=== PATIENT | female | born 1965 | race Two or more races ===

== ENCOUNTER 2016-10-25 21:07 | Emergency (ER) | payer MEDICAID, OTHER ==
[~2016-10-25] VITALS: Ht 157.5 cm; Wt 128.4 kg
[2016-10-26 01:30] VITALS: BP 108/55
== END 2016-10-26 02:16 | disposition left against medical advice (07) ==
LOC: ER 21:11
DX: R73.9 Hyperglycemia, unspecified (principal); Z53.21 Procedure and treatment not carried out due to patient leaving prior to being seen by health care provider
CPT/HCPCS: 82962

== ENCOUNTER 2017-10-04 15:57 | Emergency (ER) | payer MEDICAID ==
[~2017-10-04] VITALS: Ht 157.5 cm; Wt 121.6 kg
[2017-10-04 19:29] VITALS: BP 121/77
== END 2017-10-04 19:38 | disposition home or self-care (01) ==
LOC: ER 16:05
DX: S00.93XA Contusion of unspecified part of head, initial encounter (principal); E11.9 Type 2 diabetes mellitus without complications; I10 Essential (primary) hypertension; Z98.51 Tubal ligation status; X58.XXXA Exposure to other specified factors, initial encounter; Y93.89 Activity, other specified; Y92.89 Other specified places as the place of occurrence of the external cause; Y99.8 Other external cause status
CPT/HCPCS: 70450

== ENCOUNTER 2020-09-30 18:10 | Inpatient (IN) | payer MEDICAID ==
[~2020-09-30] VITALS: Ht 157.5 cm; Wt 118.0 kg
[2020-09-30] MEDS ORDERED: methylPREDNISolone SOD SUCC 125 MG/2 ML VL IV ONE (18:30)
[2020-09-30] MEDS ORDERED: DOCUSATE SOD 100 MG CAP PO PRN (23:30)
[2020-09-30] MEDS ORDERED: NITROGLYCERIN 0.4 MG SL TAB SL PRN (23:30)
[2020-09-30] MEDS ORDERED: HYDROcodone-ACET 5/325MG TAB PO PRN (23:30)
[2020-09-30] MEDS ORDERED: ONDANSETRON HCL 4 MG/2 ML VIAL IV PRN (23:30)
[2020-09-30] MEDS ORDERED: DEXTROSE (50%) 50ML SYRG IV PRN (23:30)
[2020-09-30] MEDS ORDERED: ACETAMINOPHEN 325 MG TAB PO PRN (23:30)
[2020-09-30] MEDS ORDERED: MORPHINE SULF INJ 2 MG/ML SYRINGE 1ML IV PRN (23:30)
[2020-09-30 23:34] LABS: Basophils # (auto) 0 10 ^3/uL (0-0.2); Basophils % (auto) 0.3 % (0.0-2.0); Eosinophils # (auto) 0 10 ^3/uL (0-0.8); Lymphocytes # (auto) 0.7 10 ^3/uL (0.4-5.4); Lymphocytes % (auto) 10.3 % (10.0-50.0); Monocytes # (auto) 0.4 10 ^3/uL (0-1.3); Neutrophils # (auto) 5.6 10 ^3/uL (1.6-8.6); Platelet Count (auto) 312 10^3/uL (140-450)
[2020-09-30 23:37] LABS: Hematocrit 33.7 % (36.0-46.0); Hemoglobin 10.6 g/dL (12.2-16.2); Mean Corpuscular Hemoglobin 26.6 pg (28.0-32.0); Mean Corpuscular Hgb Conc. 31.4 g/dL (32.0-36.0); Mean Corpuscular Volume 84.9 fL (80.0-100.0); Monocytes % (auto) 5.8 % (0.0-12.0); Neutrophils % (auto) 83.6 % (37.0-80.0); Nucleated Red Blood Cells % 0.1 %; Red Blood Cells 3.97 10^6/uL (4.0-5.20); White Blood Cell 6.7 10^3/uL (4.4-10.8)
[2020-10-01] LABS: Albumin 2.4 g/dL (3.4-5.0); Anion Gap 5 (5-15); Blood Urea Nitrogen 20 mg/dL (7-18); Carbon Dioxide 25 mmol/L (21-32); Chloride 102 mmol/L (98-107); Potassium 4.7 mmol/L (3.5-5.1); Sodium 132 mmol/L (136-145)
[2020-10-01 00:09] LABS: Alanine Aminotransferase 19 U/L (13-56); Alkaline Phosphatase 56 U/L (45-117); Aspartate Aminotransferase 21 U/L (15-37); BUN/Creatinine Ratio 13.9; Bilirubin, Total 0.4 mg/dL (0.2-1.0); CRP High Sensitivity 5.12 mg/dL (< 0.3); Calcium 8.8 mg/dL (8.5-10.1); GFR African American 48 mL/min; GFR Non-African American 40 mL/min; Total Protein 8.3 g/dL (6.4-8.2)
[2020-10-01 00:21] LABS: Glucose 588 mg/dL (74-106)
[2020-10-01] MEDS: DOXYCYCLINE 100MG/250ML 250 ML IV SCH ×3 (01:07→22:59)
[2020-10-01 06:25] LABS: Basophils # (auto) 0 10 ^3/uL (0-0.2); Basophils % (auto) 0.3 % (0.0-2.0); Eosinophils # (auto) 0 10 ^3/uL (0-0.8); Hemoglobin 10.9 g/dL (12.2-16.2); Lymphocytes # (auto) 0.8 10 ^3/uL (0.4-5.4); Lymphocytes % (auto) 14.9 % (10.0-50.0); Nucleated Red Blood Cells % 0.1 %; White Blood Cell 5.5 10^3/uL (4.4-10.8)
[2020-10-01 06:34] LABS: Hematocrit 34.9 % (36.0-46.0); Mean Corpuscular Hemoglobin 26.4 pg (28.0-32.0); Mean Corpuscular Hgb Conc. 31.3 g/dL (32.0-36.0); Mean Corpuscular Volume 84.6 fL (80.0-100.0); Monocytes # (auto) 0.3 10 ^3/uL (0-1.3); Monocytes % (auto) 5.8 % (0.0-12.0); Neutrophils # (auto) 4.4 10 ^3/uL (1.6-8.6); Platelet Count (auto) 330 10^3/uL (140-450); Red Blood Cells 4.13 10^6/uL (4.0-5.20); Red Cell Distribution Width 17.1 % (11.8-14.3)
[2020-10-01 07:06] LABS: Albumin 2.6 g/dL (3.4-5.0); Bilirubin, Total 0.3 mg/dL (0.2-1.0); Calcium 9.1 mg/dL (8.5-10.1); Total Protein 8.4 g/dL (6.4-8.2)
[2020-10-01] MEDS: ALBUTEROL SULF HFA 90MCG INH 200DOSE IN SCH ×2 (07:09→14:00)
[2020-10-01] MEDS: SODIUM CHLOR 0.9% PF (SALINE LOCK) 10ML VIAL/SYR IV SCH ×3 (07:09→22:46)
[2020-10-01] MEDS: ACCU-CHEK COMFORT CURVE STRIP VI SCH ×4 (07:25→22:46)
[2020-10-01] MEDS: InsuLIN REG 1unit/0.01ml Soln (100units/ml) SC SCH ×3 (07:26→17:22)
[2020-10-01] MEDS ORDERED: BUDESONIDE (INHALATION) 0.5 MG/2 ML NEB NEB SCH (10:00)
[2020-10-01] MEDS: ASCORBIC ACID 500 MG TAB PO SCH ×2 (10:31→22:58)
[2020-10-01] MEDS: MULTIPLE VITAMIN TAB PO SCH (10:31)
[2020-10-01] MEDS: INSULIN LANTUS (GLARGINE) 1 /0.01ml (100units/ml) SC SCH (10:31)
[2020-10-01] MEDS: CHOLECALCIFEROL (VITD3) 2,000 UNIT CAP PO SCH (10:31)
[2020-10-01] MEDS: FAMOTIDINE 20 MG TAB PO SCH ×2 (10:31→22:58)
[2020-10-01] MEDS: ENOXAPARIN SOD 40 MG/0.4 ML SYRINGE SC SCH (10:31)
[2020-10-01] MEDS: ZINC SULFATE 220mg CAP or TAB PO SCH (10:32)
[2020-10-01] MEDS: BUDESONIDE (INHALATION) 180 MCG IH IN SCH (18:43)
[2020-10-01] MEDS ORDERED: ALBUTEROL SULF HFA 90MCG INH 200DOSE IN PRN (20:30)
[2020-10-01] MEDS ORDERED: InsuLIN REG 1unit/0.01ml Soln (100units/ml) SC SCH (22:00)
[2020-10-01] MEDS ORDERED: REMDESIVIR PER PHARMACY 0 ML IV SCH (22:00)
[2020-10-01] MEDS ORDERED: PATIENTS OWN MEDICATION (PULMICORT 360 MCG) IN SCH (22:00)
[2020-10-02] VITALS: BP 128/81
[2020-10-02] MEDS: INSULIN LANTUS (GLARGINE) 1 /0.01ml (100units/ml) SC SCH ×2 (00:14→09:59)
[2020-10-02] MEDS: SODIUM CHLOR 0.9% PF (SALINE LOCK) 10ML VIAL/SYR IV SCH ×2 (06:00→14:00)
[2020-10-02] MEDS: ACCU-CHEK COMFORT CURVE STRIP VI SCH ×3 (06:41→17:11)
[2020-10-02] MEDS: InsuLIN REG 1unit/0.01ml Soln (100units/ml) SC SCH ×3 (07:06→17:44)
[2020-10-02 08:00] VITALS: BP 140/79
[2020-10-02 08:22] LABS: Basophils # (auto) 0 10 ^3/uL (0-0.2); Eosinophils # (auto) 0 10 ^3/uL (0-0.8); Lymphocytes # (auto) 2.2 10 ^3/uL (0.4-5.4); Monocytes % (auto) 9.9 % (0.0-12.0); Nucleated Red Blood Cells % 0.1 %; Red Cell Distribution Width 16.5 % (11.8-14.3)
[2020-10-02 08:24] LABS: Basophils % (auto) 0.2 % (0.0-2.0); Eosinophils % (auto) 0.1 % (0.0-7.0); Hematocrit 35.3 % (36.0-46.0); Lymphocytes % (auto) 23.7 % (10.0-50.0); Mean Corpuscular Hemoglobin 26.2 pg (28.0-32.0); Mean Corpuscular Hgb Conc. 31.3 g/dL (32.0-36.0); Mean Corpuscular Volume 83.8 fL (80.0-100.0); Monocytes # (auto) 0.9 10 ^3/uL (0-1.3); Neutrophils # (auto) 6.1 10 ^3/uL (1.6-8.6); Neutrophils % (auto) 66.1 % (37.0-80.0); Platelet Count (auto) 355 10^3/uL (140-450); Red Blood Cells 4.22 10^6/uL (4.0-5.20); White Blood Cell 9.2 10^3/uL (4.4-10.8)
[2020-10-02 08:47] LABS: Potassium 3.3 mmol/L (3.5-5.1)
[2020-10-02 09:02] LABS: BUN/Creatinine Ratio 20.9; CRP High Sensitivity 1.16 mg/dL (< 0.3); Calcium 9.4 mg/dL (8.5-10.1)
[2020-10-02] MEDS: CHOLECALCIFEROL (VITD3) 2,000 UNIT CAP PO SCH (09:48)
[2020-10-02] MEDS: FAMOTIDINE 20 MG TAB PO SCH (09:48)
[2020-10-02] MEDS: ZINC SULFATE 220mg CAP or TAB PO SCH (09:49)
[2020-10-02] MEDS: ENOXAPARIN SOD 40 MG/0.4 ML SYRINGE SC SCH (09:49)
[2020-10-02] MEDS: ASCORBIC ACID 500 MG TAB PO SCH (09:49)
[2020-10-02] MEDS: MULTIPLE VITAMIN TAB PO SCH (09:49)
[2020-10-02] MEDS: DOXYCYCLINE 100MG/250ML 250 ML IV SCH (11:30)
[2020-10-02] MEDS ORDERED: POTASSIUM EFFERVESENT TAB 25 MEQ PO ONE (12:00)
[2020-10-02] MEDS: BUDESONIDE (INHALATION) 180 MCG IH IN SCH ×2 (12:00→19:20)
[2020-10-02] MEDS: ALBUTEROL SULF HFA 90MCG INH 200DOSE IN SCH ×3 (12:00→19:20)
[2020-10-02] MEDS ORDERED: IOHEXOL 350 MG/ML 100ML IJ ONE (14:03)
[2020-10-02 16:00] VITALS: BP 152/71
[2020-10-02] MEDS ORDERED: LISI-648 PO (17:27)
[2020-10-02] MEDS ORDERED: ASPI81CH43 PO (17:27)
[2020-10-02] MEDS ORDERED: NIF10C PO (17:27)
[2020-10-02] MEDS ORDERED: METF-370 PO (17:27)
[2020-10-02] MEDS ORDERED: guaiFENesin-DM 100/10mg/5ml SYR PO PRN (17:30)
[2020-10-02] MEDS ORDERED: REMDESIVIR 200 MG in NS 210ml LOADING DOSE ADULT IV ONE (18:00)
[2020-10-02 20:17] VITALS: BP 152/71
[2020-10-03] MEDS ORDERED: ALBUAER3 IN (00:29)
[2020-10-03] MEDS ORDERED: DEXT1SYP6 PO (00:29)
[2020-10-03] MEDS ORDERED: IPRIH IN (00:29)
[2020-10-03] MEDS ORDERED: DOXY-338 PO (00:29)
[2020-10-03] MEDS ORDERED: DEXA6TAB6 PO (00:29)
[2020-10-03] MEDS ORDERED: REMDESIVIR 100mg 100 MG in SODIUM CHL 0.9% 230 ML IV SCH (15:00)
== END 2020-10-02 23:00 | disposition home health service (06) | DRG 137 ==
LOC: ER 18:10 → TELE 23:38 → TELE-WESTW 10-01 20:37
PROVIDERS: ADMIT Nurse Practitioner Family; ATTEND Hospitalist
PROC: XW033E5 Introduction of Remdesivir Anti-infective into Peripheral Vein, Percutaneous Approach, New Technology Group 5 (ICD-10-PCS; principal; 2020-10-01)
DX: U07.1 COVID-19 (principal); J96.01 Acute respiratory failure with hypoxia; E66.01 Morbid (severe) obesity due to excess calories; I10 Essential (primary) hypertension; E11.65 Type 2 diabetes mellitus with hyperglycemia; J12.82 Pneumonia due to coronavirus disease 2019; Z82.49 Family history of ischemic heart disease and other diseases of the circulatory system; Z83.3 Family history of diabetes mellitus; Z83.511 Family history of glaucoma; Z90.710 Acquired absence of both cervix and uterus; Z68.41 Body mass index [BMI] 40.0-44.9, adult; E44.1 Mild protein-calorie malnutrition; J15.9 Unspecified bacterial pneumonia
CPT/HCPCS: 36415; 71045; 71275; 80048; 80053; 82728; 82962; 83880; 84484; 85025; 85379; 86141; 87426; 93005; 93970; 94640; 96365; 96366; 96372; 96375; G0378; J1815; J3490